=== PATIENT | male | born 1965 | race Hispanic/Latino ===

== ENCOUNTER 2018-03-23 07:27 | Emergency (ER) | payer SELFPAY ==
[2018-03-23] MEDS ORDERED: MORPHINE 4 MG/ML SYR ONE ×2 (07:45→09:22)
[2018-03-23] MEDS ORDERED: ONDANSETRON 4 MG/2 ML VIAL ONE (07:45)
[2018-03-23] MEDS ORDERED: NA CHLORIDE 0.9% 1,000 ML ONE (07:45)
[2018-03-23 08:06] LABS: Absolute Lymphocytes (CBC) 1.1 K/uL (0.7-4.9); Absolute Monocytes 0.4 K/uL (0.1-1.3); Absolute Neutrophil 6.5 K/uL (1.8-8.0); Basophils % 0.3 % (0-1.3); Eosinophils % 0.4 % (0-4.4); Hematocrit 45.9 % (39.6-49.0); Lymphocytes % 13.8 % (15.3-44.8); MCH 29.1 pg (27.0-35.0); MCV 87.3 fL (80-100); MPV 10.9 fL (7.6-11.3); Monocytes % 4.5 % (3.3-12.3); RBC Red Blood Cell Count 5.26 M/uL (4.33-5.43)
[2018-03-23 08:23] LABS: Albumin 3.9 g/dL (3.4-5.0); Bilirubin Direct 0.1 mg/dL (0-0.2); Bilirubin Total 0.5 mg/dL (0.2-1.0); Potassium 3.8 mmol/L (3.5-5.1); Protein, Total 7.6 g/dL (6.4-8.2)
[2018-03-23 09:26] LABS: Urine Mucus 1+ /HPF (NONE SEEN)
[2018-03-23 09:27] LABS: Urine Bacteria <20 /HPF (NONE SEEN); Urine Culture Reflex Order NOT NEEDED; Urine RBC 20-50 /HPF (NONE SEEN)
[2018-03-23 09:28] LABS: Urine Blood 3+ (NEG); Urine Glucose NEGATIVE (NEG); Urine Protein TRACE (NEG); Urine Specific Gravity 1.025 (1.005-1.030)
--- NOTE | 2018-03-23 10:10 | RAD REPORT ---
EXAM DESCRIPTION: CT - Stone Protocol - 03/23/2018 9:57 am CLINICAL HISTORY: Abdominal pain. Left flank pain COMPARISON: None. TECHNIQUE: Computed axial tomography of the abdomen pelvis was obtained without oral or IV contrast. Lack of IV and oral contrast limits evaluation of solid organs, bowel, and vessels. Coronal reformat pepe images were obtained and reviewed. All CT scans are performed using dose optimization technique as appropriate and may include automated exposure control or mA/KV adjustment according to patient size. FINDINGS: A renal calculus is not seen. Mild left hydronephrosis is present. The left ureter is dila pepe a 2 millimeter calculus is present within the distal left ureter. The liver, spleen, pancreas and adrenals appear grossly normal There is no evidence of diverticulitis. The appendix appears normal IMPRESSION: 2 millimeter calculus distally at ureter resulting mild left hydronephrosis
[2018-03-23] MEDS ORDERED: KETOROLAC 30 MG/ML INJ ONE (10:14)
[2018-03-23] MEDS ORDERED: TAMSULOSIN 0.4 MG SR CAP ONE (10:27)
--- NOTE | 2018-03-23 10:54 | EDPHYS ---
Physician Documentation [facility] Name: Andrey Real Age: 52 yrs Sex: Male : 1965 Arrival Date: 03/23/2018 Time: 07:30 Bed 15 Private MD: None, None ED Physician Jane Nazario HPI: 03/23 07:44 This 52 yrs old Male presents to ER via Wheelchair with complaints of Right jmm Side Pain, Vomiting. 07:44 The patient complains of pain in the left flank. The pain radiates to the left lower jmm quadrant. Onset: The symptoms/episode began/occurred acutely. Associated signs and symptoms: Pertinent positives: vomiting. This is a 52 year old male with a history of [place] that presents to the ED with left flank pain beginning approx 3 days ago. The pain has currently moved to the left lower quadrant and is now accompanied with vomiting. Patient denies fever or diarrhea. . Historical: - Allergies: 07:39 No Known Allergies; rb1 - Home Meds: 07:39 None [Active]; rb1 - PMHx: 07:39 [place]; rb1 - PSHx: 07:39 None; rb1 - Immunization history:: Adult Immunizations up to date. - Social history:: Smoking status: Patient/guardian denies using tobacco. - Ebola Screening: : Patient negative for fever greater than or equal to 101.5 degrees Fahrenheit, and additional compatible Ebola Virus Disease symptoms. ROS: 07:44 Constitutional: Negative for fever, chills, and weight loss, Cardiovascular: Negative jmm for chest pain, palpitations, and edema, Respiratory: Negative for shortness of breath, cough, wheezing, and pleuritic chest pain. 07:44 MS/Extremity: Negative for injury and deformity, Skin: Negative for injury, rash, and discoloration, Neuro: Negative for headache, weakness, numbness, tingling, and seizure. 07:44 Abdomen/GI: Positive for abdominal pain, nausea and vomiting. 07:44 Back: Positive for flank pain, on the left. 07:44 All other systems are negative. Exam: 07:44 Head/Face: atraumatic. Chest/axilla: Normal chest wall appearance and motion. jmm Cardiovascular: Regular rate and rhythm. No edema appreciated Respiratory: Normal respirations, no respiratory distress appreciated 07:44 Skin: General appearance color normal MS/ Extremity: Moves all extremities, no obvious deformities appreciated, no edema noted to the lower extremities Neuro: Awake and alert, normal gait Psych: Behavior is normal, Mood is normal, Patient is cooperative and pleasant 07:44 Constitutional: The patient appears alert, awake, uncomfortable. 07:44 Abdomen/GI: Inspection: abdomen appears normal, Bowel sounds: normal, Palpation: soft, mild abdominal tenderness, in the left lower quadrant. 07:44 Back: CVA tenderness, that is mild, is noted on the left. Vital Signs: 07:39 BP 121 / 66; Pulse 95; Resp 22; Temp 98.2(O); Pulse Ox 96% on R/A; Weight 54.43 kg (R); rb1 Height 5 ft. 3 in. (160.02 cm) (R); Pain 10/10; 08:00 BP 117 / 76; Pulse 82; Resp 19; Pulse Ox 98% on R/A; Pain 7/10; rb1 09:00 BP 111 / 71; Pulse 68; Resp 19; Pulse Ox 98% on R/A; rb1 10:00 BP 109 / 71; Pulse 72; Resp 18; Pulse Ox 100% on R/A; rb1 11:00 BP 109 / 75; Pulse 74; Resp 17; Pulse Ox 99% on R/A; rb1 07:39 Body Mass Index 21.26 (54.43 kg, 160.02 cm) rb1 MDM: 07:40 Patient medically screened. [facility] 10:28 Data reviewed: vital signs, nurses notes, lab test result(s), radiologic studies, CT [facility] scan. Counseling: I had a detailed discussion with the patient and/or guardian regarding: the historical points, exam findings, and any diagnostic results supporting the discharge/admit diagnosis, the presence of at least one elevated blood pressure reading (>120/80) during this emergency department visit, lab results, radiology results, the need for outpatient follow up, to return to the emergency department if symptoms worsen or persist or if there are any questions or concerns that arise at home. Response to treatment: the patient's symptoms have markedly improved after treatment. 03/23 07:41 Order name: Amylase, Serum; Complete Time: 09:01 [facility] 03/23 07:41 Order name: Basic Metabolic Panel; Complete Time: 09:01 [facility] 03/23 07:41 Order name: CBC with Diff; Complete Time: 08:12 [facility] 03/23 07:41 Order name: Creatinine for Radiology; Complete Time: 09:01 [facility] 03/23 07:41 Order name: Hepatic Function; Complete Time: 09:01 [facility] 03/23 07:41 Order name: Lipase; Complete Time: 09:01 [facility] 03/23 07:41 Order name: Urine Microscopic Only; Complete Time: 09:35 [facility] 03/23 07:41 Order name: CT Stone Protocol; Complete Time: 10:11 [facility] 03/23 09:08 Order name: Urine Dipstick--Ancillary (enter results); Complete Time: 09:35 03/23 07:41 Order name: IV Saline Lock; Complete Time: 07:48 [facility] 03/23 07:41 Order name: Labs collected and sent; Complete Time: 07:48 [facility] 03/23 07:41 Order name: Urine Dipstick-Ancillary (obtain specimen); Complete Time: 08:58 jmm Administered Medications: 07:50 Drug: NS 0.9% 1000 ml Route: IV; Rate: 1 bolus; Site: right antecubital; em 09:00 Follow up: IV Status: Completed infusion rb1 07:51 Drug: morphine 4 mg Route: IVP; Site: right antecubital; ss 08:08 Follow up: Response: No adverse reaction; Pain is decreased rb1 07:51 Drug: Zofran 4 mg Route: IVP; Site: right antecubital; ss 08:08 Follow up: Response: No adverse reaction; Nausea is decreased rb1 09:20 Drug: morphine 4 mg Route: IVP; Site: right antecubital; rb1 10:05 Follow up: Response: No adverse reaction; Pain is unchanged, physician notified rb1 10:14 Drug: Ketorolac 30 mg Route: IVP; Site: right antecubital; rb1 10:34 Follow up: Response: No adverse reaction; Pain is decreased rb1 10:20 Drug: Flomax 0.4 mg Route: PO; rb1 10:45 Follow up: Response: No adverse reaction; Marked relief of symptoms; Pain is decreased rb1 Disposition: 03/23/18 10:54 Discharged to Home. Impression: Calculus of ureter. - Condition is Stable. - Discharge Instructions: Kidney Stones, Ureteral Colic, Dietary Guidelines to Help Prevent Kidney Stones. - Prescriptions for Zofran ODT 4 mg Oral tablet,disintegrating - place 1 tablet by TRANSLINGUAL route every 4-6 hours; 20 tablet. Tylenol- Codeine #3 300-30 mg Oral Tablet - take 1 tablet by ORAL route every 6 hours As needed; 20 tablet. Flomax 0.4 mg Oral Capsule, Sust. Release 24 hr - take 1 capsule by ORAL route once daily 1/2 hour following the same meal each day; 30 capsule. - Medication Reconciliation Form, Thank You Letter, Antibiotic Education, Prescription Opioid Use, Work release form form. - Follow up: Liliana Yeager MD; When: 2 - 3 days; Reason: Continuance of care. Addendum: 03/24/2018 21:30 Co-signature as Attending Physician, Jane Nazario MD. m a2 Signatures: Dispatcher [employer] EDLuis Armando Winn PA PA jmm Munoz, Edgar, RESIDENTIAL FIELD MANAGER RESIDENTIAL FIELD MANAGER em Breanna Andrade, RACHEAL RN ss Nelia Hughes RN RN rb1 Jane Nazario MD MD ma2 Corrections: (The following items were deleted from the chart) 03/23 11:23 10:54 03/23/2018 10:54 Discharged to Home. Impression: Calculus of ureter. Condition is rb1 Stable. Forms are Medication Reconciliation Form, Thank You Letter, Antibiotic Education, Prescription Opioid Use. Follow up: Liliana Yeager; When: 2 - 3 days; Reason: Continuance of care. jacob
--- NOTE | 2018-03-23 10:54 | ER ---
Nurse's Notes [facility] Name: Andrey Real Age: 52 yrs Sex: Male : 1965 Arrival Date: 03/23/2018 Time: 07:30 Bed 15 Private MD: None, None Diagnosis: Calculus of ureter Presentation: 03/23 07:39 Presenting complaint: Patient states: Nausea and vomiting and pain in the left lower rb1 quadrant. Transition of care: patient was not received from another setting of care. Onset of symptoms was March 21, 2018. Risk Assessment: Do you want to hurt yourself or someone else? Patient reports no desire to harm self or others. Initial Sepsis Screen: Does the patient meet any 2 criteria? No. Patient's initial sepsis screen is negative. Does the patient have a suspected source of infection? No. Patient's initial sepsis screen is negative. Care prior to arrival: None. 07:39 Method Of Arrival: Wheelchair rb1 07:39 Acuity: GINA 3 rb1 Triage Assessment: 07:39 General: Appears uncomfortable, slender, Behavior is calm, cooperative, Denies fever. rb1 Pain: Complains of pain in left lower quadrant Pain radiates to low back area Pain currently is 10 out of 10 on a pain scale. Pain began 2-3 days ago. Neuro: Level of Consciousness is awake, alert, obeys commands, Oriented to person, place, time, situation. Cardiovascular: Capillary refill < 3 seconds is brisk in bilateral fingers. Respiratory: Airway is patent Respiratory effort is even, unlabored, Respiratory pattern is regular, symmetrical. GI: Bowel sounds present X 4 quads. Abd is soft Abdomen is tender to palpation in left lower quadrant Reports nausea, vomiting. : No signs and/or symptoms were reported regarding the genitourinary system. Derm: Skin is dry, Skin is normal, Skin temperature is warm. Musculoskeletal: Range of motion: intact in all extremities. Historical: - Allergies: 07:39 No Known Allergies; rb1 - Home Meds: 07:39 None [Active]; rb1 - PMHx: 07:39 [place]; rb1 - PSHx: 07:39 None; rb1 - Immunization history:: Adult Immunizations up to date. - Social history:: Smoking status: Patient/guardian denies using tobacco. - Ebola Screening: : Patient negative for fever greater than or equal to 101.5 degrees Fahrenheit, and additional compatible Ebola Virus Disease symptoms. Screenin:39 Abuse screen: Denies threats or abuse. Nutritional screening: No deficits noted. rb1 Tuberculosis screening: No symptoms or risk factors identified. Fall Risk None identified. Assessment: 07:39 General: See triage assessment. rb1 08:38 Reassessment: Patient appears in no apparent distress at this time. Patient and/or rb1 family updated on plan of care and expected duration. Pain level reassessed. Patient is alert, oriented x 3, equal unlabored respirations, skin warm/dry/pink. 09:15 Reassessment: Patient and/or family updated on plan of care and expected duration. Pain rb1 level reassessed. Patient is alert, oriented x 3, equal unlabored respirations, skin warm/dry/pink. Pt. requested more pain medication. Provider notified. Received order for Morphine 4 mg IVP once. 100% verbal read back. 09:30 Reassessment: Called CT and left voice mail about the pending CT scan that needs done. rb1 09:55 Reassessment: Pt. went to CT. rb1 10:05 Reassessment: Patient and/or family updated on plan of care and expected duration. Pain rb1 level reassessed. Patient is alert, oriented x 3, equal unlabored respirations, skin warm/dry/pink. Pt. is back from CT and stated, "The pain medication you gave me isn't working." Provider notified. 11:00 Reassessment: Patient appears in no apparent distress at this time. Patient and/or rb1 family updated on plan of care and expected duration. Pain level reassessed. Patient is alert, oriented x 3, equal unlabored respirations, skin warm/dry/pink. Family at bedside. Patient states symptoms have improved. Vital Signs: 07:39 BP 121 / 66; Pulse 95; Resp 22; Temp 98.2(O); Pulse Ox 96% on R/A; Weight 54.43 kg (R); rb1 Height 5 ft. 3 in. (160.02 cm) (R); Pain 10/10; 08:00 BP 117 / 76; Pulse 82; Resp 19; Pulse Ox 98% on R/A; Pain 7/10; rb1 09:00 BP 111 / 71; Pulse 68; Resp 19; Pulse Ox 98% on R/A; rb1 10:00 BP 109 / 71; Pulse 72; Resp 18; Pulse Ox 100% on R/A; rb1 11:00 BP 109 / 75; Pulse 74; Resp 17; Pulse Ox 99% on R/A; rb1 07:39 Body Mass Index 21.26 (54.43 kg, 160.02 cm) rb1 ED Course: 07:30 Patient arrived in ED. sb2 07:31 None, None is Private Physician. sb2 07:33 Luis Armando German PA is PHCP. jmm 07:38 Nelia Hughes, RN is Primary Nurse. rb1 07:39 Arm band placed on right wrist. rb1 07:39 Patient has correct armband on for positive identification. Bed in low position. Call rb1 light in reach. Side rails up X 1. Pulse ox on. NIBP on. Warm blanket given. 07:42 Triage completed. rb1 07:47 Initial lab(s) drawn, by tn, sent to lab. Inserted saline lock: 20 gauge in right dh3 antecubital area, using aseptic technique. Blood collected. 08:58 Urine collected: clean catch specimen, eber colored. dh3 09:57 CT completed. Patient moved to CT via wheelchair. Patient moved back from CT. cw1 09:57 CT Stone Protocol In Process Unspecified. EDMS 10:53 Liliana Yeager MD is Referral Physician. jmm 10:54 Jane Nazario MD is Attending Physician. jmm 11:19 No provider procedures requiring assistance completed. IV discontinued, intact, rb1 bleeding controlled, No redness/swelling at site. Pressure dressing applied. Administered Medications: 07:50 Drug: NS 0.9% 1000 ml Route: IV; Rate: 1 bolus; Site: right antecubital; em 09:00 Follow up: IV Status: Completed infusion rb1 07:51 Drug: morphine 4 mg Route: IVP; Site: right antecubital; ss 08:08 Follow up: Response: No adverse reaction; Pain is decreased rb1 07:51 Drug: Zofran 4 mg Route: IVP; Site: right antecubital; ss 08:08 Follow up: Response: No adverse reaction; Nausea is decreased rb1 09:20 Drug: morphine 4 mg Route: IVP; Site: right antecubital; rb1 10:05 Follow up: Response: No adverse reaction; Pain is unchanged, physician notified rb1 10:14 Drug: Ketorolac 30 mg Route: IVP; Site: right antecubital; rb1 10:34 Follow up: Response: No adverse reaction; Pain is decreased rb1 10:20 Drug: Flomax 0.4 mg Route: PO; rb1 10:45 Follow up: Response: No adverse reaction; Marked relief of symptoms; Pain is decreased rb1 Outcome: 10:54 Discharge ordered by MD. james 11:19 Discharged to home ambulatory, with family. rb1 11:19 Condition: stable 11:19 Discharge instructions given to patient, Instructed on discharge instructions, follow up and referral plans. medication usage, Demonstrated understanding of instructions, follow-up care, medications, Prescriptions given X 3. 11:19 Patient left the ED. rb1 Signatures: Dispatcher [employer] EDMS Luis Armando German PA PA jmm Munoz, Edgar, SKEIN YARN DYER HELPER SKEIN YARN DYER HELPER Breanna Gavin RN RN Camilla Leon cw1 Nelia Hughes RN RN rb1 Ebonie Cartagena 3 Mirta Yu sb2 Corrections: (The following items were deleted from the chart) 11:24 11:23 Patient left the ED. rb1 rb1
== END 2018-03-23 11:23 | disposition home or self-care (01) ==
LOC: ER 07:27
DX: N20.1 Calculus of ureter (principal)
CPT/HCPCS: 36415; 74176; 76377; 80048; 80076; 81003; 81015; 82150; 83690; 85025; 96361; 96374; 96375; 99284; J2405; J7030

== ENCOUNTER 2020-04-24 09:20 | Emergency (ER) | payer SELFPAY ==
[2020-04-24] MEDS ORDERED: FENTANYL CITR 100 MCG/2 ML ONE (09:47)
[2020-04-24] MEDS ORDERED: LIDOCAINE 1% W/EPI 1:100,000 MDV 20 ML VIAL ONE (09:48)
[2020-04-24 10:15] LABS: Absolute Lymphocytes (CBC) 1.8 K/uL (0.7-4.9); Basophils % 0.2 % (0-1.3); Hematocrit 47.7 % (39.6-49.0); Lymphocytes % 26.7 % (15.3-44.8); MPV 10.8 fL (7.6-11.3); RBC Red Blood Cell Count 5.48 M/uL (4.33-5.43)
[2020-04-24 10:28] LABS: Albumin 3.9 g/dL (3.4-5.0); Bilirubin Direct 0.2 mg/dL (0-0.2); Bilirubin Total 0.6 mg/dL (0.2-1.0); Potassium 3.8 mmol/L (3.5-5.1); Protein, Total 7.7 g/dL (6.4-8.2)
--- NOTE | 2020-04-24 10:34 | RAD REPORT ---
EXAM DESCRIPTION: CT - Head C Spine Cap Kevin Alonso - 04/24/2020 10:10 am CLINICAL HISTORY: Head and neck injury with chest and abdominal pain status post fall.. Head and ne ck pain . TECHNIQUE: Computed axial tomography of the head and cervical spine was obtained Computed axial tomography of the chest, abdomen and pelvis was obtained. 100 cc Isovue-300 was given intravenously coronal and sagittal reconstruction was performed. All CT scans are performed using dose optimization technique as appropriate and may include automated exposure control or mA/KV adjustment according to patient size. FINDINGS: An intracranial bleed is not seen. The ventricles are normal in caliber. An extra-axial fl uid collection is not noted. A cervical fracture is not seen. No dislocation is seen. A mediastinal hematoma is not noted. A pleural effusion is not present. A lung contusion is not seen. The liver, spleen, pancreas, adrenals, kidneys and bladder appear unremarkable. IMPRESSION: 1. No acute intracranial abnormality is seen 2. A cervical fracture is not visualized. If the patient continues have symptoms to suggest intracran ial/spinal cord pathology then MRI would be recommended. 3. No traumatic injury involving the chest, abdomen or pelvis is seen.
--- NOTE | 2020-04-24 10:41 | RAD REPORT ---
EXAM DESCRIPTION: CT - Maxillofacial W/Cont - 04/24/2020 10:10 am CLINICAL HISTORY: Facial injury status post fall. Facial pain COMPARISON: None TECHNIQUE: Computed axial tomography of the face was obtained. Coronal and sagittal reconstruction w as performed. All CT scans are performed using dose optimization technique as appropriate and may include automated exposure control or mA/KV adjustment according to patient size. FINDINGS: A fracture is not seen. A TMJ dislocation is not noted. The globes are intact. Fluid within the sinuses is not seen. IMPRESSION: Negative for a facial fracture.
--- NOTE | 2020-04-24 10:49 | RAD REPORT ---
EXAM DESCRIPTION: RAD - Elbow Right 3 View - 04/24/2020 9:59 am CLINICAL HISTORY: Elbow pain FINDINGS: Small bony/calcific density adjacent to the lateral humeral condyle likely chronic No acute fracture or dislocation seen
--- NOTE | 2020-04-24 10:50 | RAD REPORT ---
EXAM DESCRIPTION: RAD - Knee Right 3 View - 04/24/2020 9:59 am CLINICAL HISTORY: Right knee pain status post injury FINDINGS: No fracture or dislocation is seen.
--- NOTE | 2020-04-24 10:53 | RAD REPORT ---
EXAM DESCRIPTION: Erick Single View04/24/2020 9:59 am CLINICAL HISTORY: Chest pain COMPARISON: none FINDINGS: The lungs appear clear of acute infiltrate. The heart is normal size IMPRESSION: No acute abnormalities displayed
--- NOTE | 2020-04-24 11:31 | EDPHYS ---
Physician Documentation [facility] Name: Andrey Real Age: 54 yrs Sex: Male : 1965 Arrival Date: 04/24/2020 Time: 09:22 Bed 2 Private MD: ED Physician Jane Nazario HPI: 04/24 11:27 This 54 yrs old Male presents to ER via Wheelchair with complaints of Fall ma2 Injury. 11:27 Details of fall: The patient fell from a height, from a ladder, approximately 10 feet. ma2 Onset: The symptoms/episode began/occurred suddenly, 1 hour(s) ago. Severity of symptoms: At their worst the symptoms were moderate, in the emergency department the symptoms are unchanged. The patient has not experienced similar symptoms in the past. Historical: - Allergies: 09:25 No Known Allergies; hb - Home Meds: 09:25 None [Active]; hb - PMHx: 09:25 CA; hb - PSHx: 09:25 None; hb - Immunization history:: Adult Immunizations up to date. - Social history:: Smoking status: Patient denies any tobacco usage or history of. - Immunization history: Last tetanus immunization: < 5 years ago. - Family history:: not pertinent. ROS: 11:27 Constitutional: Negative for fever, chills, and weight loss, Eyes: Negative for injury, ma2 pain, redness, and discharge. 11:27 All other systems are negative. Exam: 11:27 Constitutional: This is a well developed, well nourished patient who is awake, alert, ma2 and in no acute distress. Head/Face: Normocephalic, has nasal contusion Eyes: Pupils equal round and reactive to light, extra-ocular motions intact. Lids and lashes normal. Conjunctiva and sclera are non-icteric and not injected. Cornea within normal limits. Periorbital areas with no swelling, redness, or edema. ENT: Nares patent. No nasal discharge, no septal abnormalities noted. Tympanic membranes are normal and external auditory canals are clear. Oropharynx with no redness, swelling, or masses, exudates, or evidence of obstruction, uvula midline. Mucous membranes moist. Neck: Trachea midline, no thyromegaly or masses palpated, and no cervical lymphadenopathy. Supple, full range of motion without nuchal rigidity, or vertebral point tenderness. No Meningismus. Chest/axilla: Normal chest wall appearance and motion. Nontender with no deformity. No lesions are appreciated. Cardiovascular: Regular rate and rhythm with a normal S1 and S2. No gallops, murmurs, or rubs. Normal PMI, no JVD. No pulse deficits. Respiratory: Lungs have equal breath sounds bilaterally, clear to auscultation and percussion. No rales, rhonchi or wheezes noted. No increased work of breathing, no retractions or nasal flaring. Abdomen/GI: Soft, non-tender, with normal bowel sounds. No distension or tympany. No guarding or rebound. No evidence of tenderness throughout. Back: No spinal tenderness. No costovertebral tenderness. Full range of motion. Skin: has laceration to both chins and right elbow, and contusion to both knees Warm, dry with normal turgor. Normal color with no rashes, no lesions, and no evidence of cellulitis. MS/ Extremity: Pulses equal, no cyanosis. Neurovascular intact. Full, normal range of motion. Neuro: Awake and alert, GCS 15, oriented to person, place, time, and situation. Cranial nerves II-XII grossly intact. Motor strength 5/5 in all extremities. Sensory grossly intact. Cerebellar exam normal. Normal gait. Vital Signs: 09:31 BP 108 / 87; Pulse 91; Resp 18; Temp 97.8; Pulse Ox 97% on R/A; Weight 61.23 kg; Height ph 5 ft. 3 in. (160.02 cm); 10:30 BP 107 / 80; Pulse 86; Resp 16; Pulse Ox 99% on R/A; ph 11:24 BP 104 / 67; Pulse 87; Resp 18; Pulse Ox 98% on R/A; ph 12:12 BP 106 / 76; Pulse 80; Resp 17; Pulse Ox 97% on R/A; tw2 09:31 Body Mass Index 23.91 (61.23 kg, 160.02 cm) ph Leah Coma Score: 09:23 Eye Response: spontaneous(4). Verbal Response: oriented(5). Motor Response: obeys hb commands(6). Total: 15. 09:31 Eye Response: spontaneous(4). Verbal Response: oriented(5). Motor Response: obeys ph commands(6). Total: 15. 10:30 Eye Response: spontaneous(4). Verbal Response: oriented(5). Motor Response: obeys ph commands(6). Total: 15. 11:24 Eye Response: spontaneous(4). Verbal Response: oriented(5). Motor Response: obeys ph commands(6). Total: 15. Trauma Score (Adult): 09:23 Eye Response: spontaneous(1); Verbal Response: oriented(1); Motor Response: obeys hb commands(2); Systolic BP: > 89 mm Hg(4); Respiratory Rate: 10 to 29 per min(4); Leah Score: 15; Trauma Score: 12 09:31 Eye Response: spontaneous(1); Verbal Response: oriented(1); Motor Response: obeys ph commands(2); Systolic BP: > 89 mm Hg(4); Respiratory Rate: 10 to 29 per min(4); [place] Score: 15; Trauma Score: 12 10:30 Eye Response: spontaneous(1); Verbal Response: oriented(1); Motor Response: obeys ph commands(2); Systolic BP: > 89 mm Hg(4); Respiratory Rate: 10 to 29 per min(4); [place] Score: 15; Trauma Score: 12 11:24 Eye Response: spontaneous(1); Verbal Response: oriented(1); Motor Response: obeys ph commands(2); Systolic BP: > 89 mm Hg(4); Respiratory Rate: 10 to 29 per min(4); Leah Score: 15; Trauma Score: 12 Laceration: 11:27 Wound Repair of 9cm ( 3.5in ) subcutaneous laceration to right arm, right leg and left ma2 leg. Linear shaped.. Distal neuro/vascular/tendon intact. Anesthesia: Local anesthetic administered with 9 mls of 1% lidocaine w/ Epi. Wound prep: Moderate cleansing. Skin closed with 7 1-0 [place] using simple sutures and sterile technique. Dressed with Bacitracin. Patient tolerated well. MDM: 09:29 Patient medically screened. ma2 11:27 Differential diagnosis: abrasion, closed head injury, contusion, fracture. Data ma2 reviewed: vital signs, nurses notes. Counseling: I had a detailed discussion with the patient and/or guardian regarding: the historical points, exam findings, and any diagnostic results supporting the discharge/admit diagnosis, the presence of at least one elevated blood pressure reading (>120/80) during this emergency department visit, the need for outpatient follow up. Response to treatment: the patient's symptoms have resolved after treatment. ED course: tdap utd. 04/24 09:34 Order name: Amylase, Serum; Complete Time: 11:03 04/24 09:34 Order name: Basic Metabolic Panel; Complete Time: 11:03 04/24 09:34 Order name: CBC with Diff; Complete Time: 11:03 04/24 09:34 Order name: ETOH Level; Complete Time: 11:03 04/24 09:34 Order name: Hepatic Function; Complete Time: 11:03 04/24 09:34 Order name: Lipase; Complete Time: 11:03 04/24 09:34 Order name: XRAY Chest (1 view); Complete Time: 11:03 04/24 09:34 Order name: CT Traumagram (Head C Spine CAP W Con); Complete Time: 11:03 04/24 09:34 Order name: CT Maxillofacial W/cont: no contrast needed; Complete Time: 11:03 04/24 09:34 Order name: Elbow Right 3 View XRAY; Complete Time: 11:03 04/24 09:34 Order name: Knee Right 3 View XRAY; Complete Time: 11:03 04/24 09:34 Order name: Knee Left 3 View XRAY; Complete Time: 11:03 04/24 09:34 Order name: EKG; Complete Time: 09:34 04/24 09:34 Order name: IV Saline Lock; Complete Time: 09:57 04/24 09:34 Order name: Labs collected and sent; Complete Time: 09:57 04/24 09:34 Order name: NPO; Complete Time: :57 04/24 09:34 Order name: O2 Per Protocol; Complete Time: :57 04/24 09:34 Order name: O2 Sat Monitoring; Complete Time: 11:23 04/24 09:34 Order name: Dressing - Wound; Complete Time: :57 04/24 09:34 Order name: Gloves, Sterile; Complete Time: 09:57 ma2 04/24 09:34 Order name: Setup Suture Tray; Complete Time: 09:57 ma2 Administered Medications: 09:46 Drug: fentaNYL (PF) 50 mcg Route: IVP; Site: left antecubital; ph 10:33 Follow up: Response: No adverse reaction; Pain is decreased; RASS: Alert and Calm (0) ph 11:23 Drug: Lidocaine-Epinephrine -1%: (1:100,000) 20 ml Volume: 20 ml; Route: Infiltration; ph Disposition: 04/24/20 11:30 Discharged to Home. Impression: Laceration without foreign body, left lower leg, Laceration without foreign body, right lower leg, Laceration without foreign body of right upper arm. - Condition is Stable. - Discharge Instructions: Laceration Care, Adult. - Prescriptions for Diclofenac Sodium 75 mg Oral Tablet Sustained Release - take 1 tablet by ORAL route 2 times per day; 30 tablet. - Work release form, Medication Reconciliation Form, Thank You Letter, Antibiotic Education, Prescription Opioid Use form. - Follow up: Private Physician; When: Tomorrow; Reason: Continuance of care. - Notes: remove kenton in upper arm in 10 day, and in leg in 2 weeks Signatures: Dispatcher [employer] EDNE Carolin Shukla RN RN Alycia Florez RN RN Missy Merchant RN RN 2 Jane Nazario MD MD ri2 Kandy Walker Corrections: (The following items were deleted from the chart) 10:56 09:34 TYPE AND SCREEN+[id number].BRZ ordered. [facility] EDNE 11:23 10:16 Labs - recollect needed ordered. ph 12:13 11:30 04/24/2020 11:30 Discharged to Home. Impression: Laceration without foreign body, tw2 left lower leg; Laceration without foreign body, right lower leg; Laceration without foreign body of right upper arm. Condition is Stable. Forms are Medication Reconciliation Form, Thank You Letter, Antibiotic Education, Prescription Opioid Use. Follow up: Private Physician; When: Tomorrow; Reason: Continuance of care. ri2
--- NOTE | 2020-04-24 11:31 | ER ---
Nurse's Notes [facility] Name: Andrey Real Age: 54 yrs Sex: Male : 1965 Arrival Date: 04/24/2020 Time: 09:22 Bed 2 Private MD: Diagnosis: Laceration without foreign body, left lower leg;Laceration without foreign body, right lower leg;Laceration without foreign body of right upper arm Presentation: 04/24 09:22 Care prior to arrival: None. Mechanism of Injury: Fall from ladder approximately 10 hb feet. Trauma event details: Injury occurred in the [facility], Injury occurred: at home. Injury occurred: April 24, 2020. 09:22 Method Of Arrival: Wheelchair hb 09:23 Chief complaint: Fell 10 feet from ladder, landed prone. Abrasions and bruisng noted to ph face, bilat forearms, and bilat lower legs, c/o difficulty breathing and right sided chest wall pain. 09:24 Acuity: GINA 2 hb 09:33 Coronavirus screen: Client denies travel out of the [place] in the last 14 days. At this ph time, the client does not indicate any symptoms associated with coronavirus-19. Ebola Screen: No symptoms or risks identified at this time. Initial Sepsis Screen: Does the patient meet any 2 criteria? No. Patient's initial sepsis screen is negative. Does the patient have a suspected source of infection? No. Patient's initial sepsis screen is negative. Risk Assessment: Do you want to hurt yourself or someone else? Patient reports no desire to harm self or others. Onset of symptoms was April 24, 2020. Trauma Activation: Alert Physician: ED Physician; Name: ; Notified At: ; Arrived At: Physician: General Surgeon; Name: ; Notified At: ; Arrived At: Physician: Radiology; Name: ; Notified At: ; Arrived At: Physician: Respiratory; Name: ; Notified At: ; Arrived At: Physician: Lab; Name: ; Notified At: ; Arrived At: Historical: - Allergies: 09:25 No Known Allergies; hb - Home Meds: :25 None [Active]; hb - PMHx: 09:25 NM; hb - PSHx: :25 None; hb - Immunization history:: Adult Immunizations up to date. - Social history:: Smoking status: Patient denies any tobacco usage or history of. - Immunization history: Last tetanus immunization: < 5 years ago. - Family history:: not pertinent. Screenin:25 Abuse screen: Denies threats or abuse. Denies injuries from another. Nutritional hb screening: No deficits noted. Tuberculosis screening: No symptoms or risk factors identified. Fall Risk None identified. Primary Survey: 09:27 NO uncontrolled hemorrhage observed. A: The patient is alert. Airway: patent, No ph supplemental oxygen in use on arrival. Oral cavity: clear, Trachea midline. Breathing/Chest: Respiratory pattern: regular, Respiratory effort: spontaneous, unlabored, Chest inspection: symmetrical rise and fall of the chest. Circulation: Skin color: pink, Skin temperature: warm, dry. Disability Alert. Exposure/Environment: All clothing and personal items were removed. There is no evidence of uncontrolled external bleeding. Obvious injury(ies) are noted at this time: lacerations to bilateral shins and R elbow, abrasions to bilateral knees and bridge of nose. 11:29 Reassessment Airway Airway Patent Oxygen No O2 Oral cavity Clear Trachea Midline ph Breathing/Chest Respiratory pattern Regular Respiratory effort Spontaneous Unlabored Chest inspection Symmetrical Circulation Color [place] Temperature Warm Dry Disability Alert. Secondary Survey: 09:28 HEENT: Nose: abrasion noted. Gastrointestinal: Patient reports Other abdominal pain. ph Musculoskeletal: Circulation, motion, and sensation intact. Range of motion: intact in all extremities, Reports pain in L knee and R elbow. Assessment: 09:22 Reassessment: Dr. Nazario at bedside. hb 09:30 General: Appears in no apparent distress. uncomfortable, well groomed, Behavior is ph calm, cooperative, appropriate for age. Pain: Complains of pain in face, abdomen, R elbow and L knee. Neuro: Level of Consciousness is awake, alert, obeys commands, Oriented to person, place, time, situation, Denies dizziness. Cardiovascular: Capillary refill < 3 seconds in bilateral Patient's skin is warm and dry. Respiratory: Airway is patent Respiratory effort is even, unlabored, Respiratory pattern is regular, symmetrical, Denies shortness of breath pain with respiration. GI: Reports lower abdominal pain, upper abdominal pain, Patient currently denies nausea. Derm: Skin is healthy with good turgor, Skin is pink, warm \T\ dry. Musculoskeletal: Circulation, motion, and sensation intact. Range of motion: intact in all extremities. Injury Description: Abrasion sustained to right arm, right leg, left leg and nose Laceration sustained to right camarena is 2.6 to 7.5 cm long, bleeding moderately. Injury Description: Laceration sustained to right antecubital area is 0.5 to 2.5 cm long, bleeding moderately. Injury Description: Laceration sustained to left camarena is 0.5 to 2.5 cm long, not bleeding. 10:34 Reassessment: Patient appears in no apparent distress at this time. Patient and/or ph family updated on plan of care and expected duration. Pain level reassessed. Patient is alert, oriented x 3, equal unlabored respirations, skin warm/dry/pink. 11:06 Reassessment: Patient appears in no apparent distress at this time. Patient and/or ph family updated on plan of care and expected duration. Pain level reassessed. Patient is alert, oriented x 3, equal unlabored respirations, skin warm/dry/pink. 12:12 Reassessment: Patient appears in no apparent distress at this time. Patient and/or tw2 family updated on plan of care and expected duration. Pain level reassessed. Patient is alert, oriented x 3, equal unlabored respirations, skin warm/dry/pink. Patient states feeling better. Vital Signs: 09:31 BP 108 / 87; Pulse 91; Resp 18; Temp 97.8; Pulse Ox 97% on R/A; Weight 61.23 kg; Height ph 5 ft. 3 in. (160.02 cm); 10:30 BP 107 / 80; Pulse 86; Resp 16; Pulse Ox 99% on R/A; ph 11:24 BP 104 / 67; Pulse 87; Resp 18; Pulse Ox 98% on R/A; ph 12:12 BP 106 / 76; Pulse 80; Resp 17; Pulse Ox 97% on R/A; tw2 09:31 Body Mass Index 23.91 (61.23 kg, 160.02 cm) ph Leah Coma Score: 09:23 Eye Response: spontaneous(4). Verbal Response: oriented(5). Motor Response: obeys hb commands(6). Total: 15. 09:31 Eye Response: spontaneous(4). Verbal Response: oriented(5). Motor Response: obeys ph commands(6). Total: 15. 10:30 Eye Response: spontaneous(4). Verbal Response: oriented(5). Motor Response: obeys ph commands(6). Total: 15. 11:24 Eye Response: spontaneous(4). Verbal Response: oriented(5). Motor Response: obeys ph commands(6). Total: 15. Trauma Score (Adult): 09:23 Eye Response: spontaneous(1); Verbal Response: oriented(1); Motor Response: obeys hb commands(2); Systolic BP: > 89 mm Hg(4); Respiratory Rate: 10 to 29 per min(4); Leah Score: 15; Trauma Score: 12 09:31 Eye Response: spontaneous(1); Verbal Response: oriented(1); Motor Response: obeys ph commands(2); Systolic BP: > 89 mm Hg(4); Respiratory Rate: 10 to 29 per min(4); Leah Score: 15; Trauma Score: 12 10:30 Eye Response: spontaneous(1); Verbal Response: oriented(1); Motor Response: obeys ph commands(2); Systolic BP: > 89 mm Hg(4); Respiratory Rate: 10 to 29 per min(4); [place] Score: 15; Trauma Score: 12 11:24 Eye Response: spontaneous(1); Verbal Response: oriented(1); Motor Response: obeys ph commands(2); Systolic BP: > 89 mm Hg(4); Respiratory Rate: 10 to 29 per min(4); Leah Score: 15; Trauma Score: 12 ED Course: 09:22 Patient arrived in ED. ds1 09:25 Triage completed. hb 09:25 Arm band placed on left wrist. hb 09:25 Patient has correct armband on for positive identification. Bed in low position. Call hb light in reach. 09:27 Carolin Shukla, RACHEAL is Primary Nurse. ph 09:28 Jane Nazario MD is Attending Physician. ma2 09:33 Initial lab(s) drawn, by me, sent to lab. kj1 09:33 Inserted saline lock: 22 gauge in left antecubital area, using aseptic technique. Blood kj1 collected. 09:34 Patient maintains SpO2 saturation greater than 95% on room air. ph 09:34 Thermoregulation: warm blanket given to patient. ph 09:59 XRAY Chest (1 view) In Process Unspecified. EDMS 09:59 Elbow Right 3 View XRAY In Process Unspecified. EDMS 09:59 Knee Right 3 View XRAY In Process Unspecified. EDMS 09:59 Knee Left 3 View XRAY In Process Unspecified. EDMS 10:10 CT Traumagram (Head C Spine CAP W Con) In Process Unspecified. EDMS 10:11 CT Maxillofacial W/cont: no contrast needed In Process Unspecified. EDMS 11:25 No provider procedures requiring assistance completed. ph 12:13 IV discontinued, intact, bleeding controlled, No redness/swelling at site. Pressure tw2 dressing applied. Administered Medications: 09:46 Drug: fentaNYL (PF) 50 mcg Route: IVP; Site: left antecubital; ph 10:33 Follow up: Response: No adverse reaction; Pain is decreased; RASS: Alert and Calm (0) ph 11:23 Drug: Lidocaine-Epinephrine -1%: (1:100,000) 20 ml Volume: 20 ml; Route: Infiltration; ph Intake: 09:23 PO: 0ml; Total: 0ml. hb 09:31 PO: 0ml; Total: 0ml. ph Output: 09:31 Urine: 0ml; Total: 0ml. ph Outcome: 11:30 Discharge ordered by MD. ma2 12:12 Discharged to home via wheelchair, with family. tw2 12:12 Condition: stable 12:12 Discharge instructions given to patient, family, Instructed on discharge instructions, follow up and referral plans. no drinking with medication, no driving heavy equipment, medication usage, safety practices, wound care, Demonstrated understanding of instructions, follow-up care, medications, wound care, Prescriptions given X 1. 12:12 Patient's length of stay in the Emergency Department was greater than 2 hours. pts in tw2 ERPatient's length of stay extended due to 12:13 Patient left the ED. tw2 Signatures: Dispatcher [employer] EDWA Ananya Bueno ds1 Carolin Shukla RN RN ph Alycia Florez, RACHEAL RN Missy Mccarthy RN RN tw2 Jane Nazario MD MD ma2 Jackson, Kandis kj1 Corrections: (The following items were deleted from the chart) 09:31 09:23 Chief complaint: Fell 10 feet from ladder, landed prone. Abrasions and bruxing ph noted to face, bilat forearms, and bilat lower legs, c/o difficulty breathing and right sided chest wall pain. hb 11:29 10:34 General: Appears in no apparent distress. uncomfortable, ph ph
[2020-04-24 12:21] VITALS: TEMP 97.8
[2020-04-24 12:24] VITALS: BP 106/76; O2SAT 97
== END 2020-04-24 12:13 | disposition home or self-care (01) ==
LOC: ER 09:20
PROC: 0JQF0ZZ Repair Left Upper Arm Subcutaneous Tissue and Fascia, Open Approach (ICD-10-PCS; principal; 2020-04-24)
PROC: 0JQD0ZZ Repair Right Upper Arm Subcutaneous Tissue and Fascia, Open Approach (ICD-10-PCS; 2020-04-24)
PROC: 0JQP0ZZ Repair Left Lower Leg Subcutaneous Tissue and Fascia, Open Approach (ICD-10-PCS; 2020-04-24)
DX: S81.812A Laceration without foreign body, left lower leg, initial encounter (principal); S81.811A Laceration without foreign body, right lower leg, initial encounter; S41.111A Laceration without foreign body of right upper arm, initial encounter; W11.XXXA Fall on and from ladder, initial encounter; Y93.9 Activity, unspecified; Y92.9 Unspecified place or not applicable
CPT/HCPCS: 36415; 70450; 70487; 71045; 71260; 72125; 74177; 80048; 80076; 80320; 82150; 83690; 85025; 96374; 99284; G0390; J3010; Q9967

== ENCOUNTER 2020-05-08 09:03 | Emergency (ER) | payer SELFPAY ==
--- NOTE | 2020-05-08 10:42 | EDPHYS ---
Physician Documentation [facility] Name: Andrey Real Age: 54 yrs Sex: Male : 1965 Arrival Date: 05/08/2020 Time: 09:06 Bed 14 Private MD: ED Physician Jane Nazario HPI: 05/08 10:35 This 54 yrs old Male presents to ER via Ambulatory with complaints of Suture cp Removal. 10:35 The patient has kellie on the right medial elbow and right camarena and left camarena. cp Previous treatment: The patient was initially treated 14 day(s) ago, the care was rendered at [facility], Treatment type: The patient's original treatment included kellie. Sutures/kellie progress: The patient has no c/o's. The wound is well-healing with no redness, swelling, discharge, or dehiscence reported. Historical: - Allergies: 10:33 No Known Allergies; ss - PMHx: 10:33 GA; ss - PSHx: 10:33 None; ss - Immunization history:: Adult Immunizations up to date. - Social history:: Smoking status: Patient denies any tobacco usage or history of. ROS: 10:37 Skin: Positive for of the medial right elbow and right camarena and left camarena, kellie. cp 10:37 All other systems are negative. Exam: 10:38 Skin: Wound recheck: Staple laceration closure: the wound is healing well, the edges cp are well approximated, no evidence of dehiscence, no drainage, no erythema, no swelling, [address] noted medial aspect right elbow and [address] noted right camarena and [address] noted left camarena. Vital Signs: 09:23 BP 157 / 84; Pulse 72; Resp 16; Temp 98.7(TE); Pulse Ox 100% on R/A; ss MDM: 10:16 Patient medically screened. cp 10:39 Data reviewed: vital signs, nurses notes. cp 10:41 Counseling: I had a detailed discussion with the patient and/or guardian regarding: the cp historical points, exam findings, and any diagnostic results supporting the discharge/admit diagnosis. 05/08 10:41 Order name: Dermabond; Complete Time: 10:41 ss Administered Medications: No medications were administered Disposition: 10:45 Chart complete. cp Disposition: 05/08/20 10:41 Discharged to Home. Impression: Encounter for removal of sutures - staple removal. - Condition is Stable. - Discharge Instructions: Suture Removal, Care After. - Medication Reconciliation Form, Thank You Letter, Antibiotic Education, Prescription Opioid Use form. - Follow up: Private Physician; When: As needed; Reason: Worsening of condition. - Problem is new. - Symptoms have improved. Signatures: Breanna Andrade RN RN Charli Farmer PA PA cp Corrections: (The following items were deleted from the chart) 10:44 10:41 05/08/2020 10:41 Discharged to Home. Impression: Encounter for removal of sutures ss - staple removal. Condition is Stable. Forms are Medication Reconciliation Form, Thank You Letter, Antibiotic Education, Prescription Opioid Use. Follow up: Private Physician; When: As needed; Reason: Worsening of condition. Problem is new. Symptoms have improved. cp
--- NOTE | 2020-05-08 10:42 | ER ---
Nurse's Notes [facility] Name: Andrey Real Age: 54 yrs Sex: Male : 1965 Arrival Date: 05/08/2020 Time: 09:06 Bed 14 Private MD: Diagnosis: Encounter for removal of sutures-staple removal Presentation: 05/08 09:23 Chief complaint: Patient states: Here to have kellie and sutures removed that were ss placed 14 days ago. Coronavirus screen: Client denies travel out of the [place] in the last 14 days. Ebola Screen: Patient denies exposure to infectious person. Patient denies travel to an Ebola-affected area in the 21 days before illness onset. Initial Sepsis Screen: Does the patient meet any 2 criteria? No. Patient's initial sepsis screen is negative. Does the patient have a suspected source of infection? No. Patient's initial sepsis screen is negative. Risk Assessment: Do you want to hurt yourself or someone else? Patient reports no desire to harm self or others. Onset of symptoms was April 2020. 09:23 Method Of Arrival: Ambulatory ss 09:23 Acuity: GINA 5 ss Historical: - Allergies: 10:33 No Known Allergies; ss - PMHx: 10:33 FL; ss - PSHx: 10:33 None; ss - Immunization history:: Adult Immunizations up to date. - Social history:: Smoking status: Patient denies any tobacco usage or history of. Screenin:33 Abuse screen: Denies threats or abuse. Denies injuries from another. Nutritional ss screening: No deficits noted. Tuberculosis screening: Never had TB. Fall Risk None identified. Assessment: 10:31 General: Appears in no apparent distress. comfortable, Behavior is calm, cooperative. ss Pain: Complains of pain in right camarena Pain currently is 2 out of 10 on a pain scale. Quality of pain is described as tender. Neuro: Level of Consciousness is awake, alert, obeys commands, Oriented to person, place, time, situation. Cardiovascular: Capillary refill < 3 seconds is brisk in bilateral fingers. Respiratory: Airway is patent Respiratory effort is even, unlabored, Respiratory pattern is regular, symmetrical. GI: Patient currently denies diarrhea, nausea, vomiting. : No signs and/or symptoms were reported regarding the genitourinary system. EENT: Nares are clear. Derm: Skin is pink, warm \T\ dry. normal. Musculoskeletal: Circulation, motion, and sensation intact. Range of motion: intact in all extremities, Swelling absent. Vital Signs: 09:23 BP 157 / 84; Pulse 72; Resp 16; Temp 98.7(TE); Pulse Ox 100% on R/A; ss ED Course: 09:06 Patient arrived in ED. mr 09:23 Arm band placed on left wrist. ss 09:24 Triage completed. ss 09:46 Charli Mcnulty PA is PHCP. cp 09:46 Jane Nazario MD is Attending Physician. cp 10:31 Breanna Andrade RN is Primary Nurse. ss 10:33 Patient has correct armband on for positive identification. Bed in low position. Call ss light in reach. 10:34 No provider procedures requiring assistance completed. Patient did not have IV access ss during this emergency room visit. Removal of Removed kellie from right leg and right camarena Patient tolerated well. Administered Medications: No medications were administered Outcome: 10:41 Discharge ordered by MD. cp 10:44 Discharged to home ambulatory. ss 10:44 Condition: good 10:44 Discharge instructions given to patient, Instructed on discharge instructions, follow up and referral plans. Demonstrated understanding of instructions, follow-up care, wound care. 10:44 Patient left the ED. ss Signatures: Cheema, Sabina mr Breanna Andrade, RN RN Charli Mcnulty PA PA cp
[2020-05-08] MEDS ORDERED: DERMABOND SKIN ADHESIVE TOP ONE (10:50)
[2020-05-11 16:13] VITALS: BP 157/84; TEMP 98.7; O2SAT 100
== END 2020-05-08 10:44 | disposition home or self-care (01) ==
LOC: ER 09:03
DX: Z48.02 Encounter for removal of sutures (principal)
CPT/HCPCS: 99281